=== PATIENT | female | born 1990 | race Caucasian/White ===

== ENCOUNTER 2019-08-11 14:35 | Emergency (ER) | payer OTHER ==
[~2019-08-11] VITALS: Ht 160 cm; Wt 72.2 kg
[2019-08-11 14:40] VITALS: BP 173/80
--- NOTE | 2019-08-11 15:27 | RAD ---
Examination: 3 views of the right hand HISTORY: History of dog bite COMPARISON: None available. FINDINGS: The alignment of the metacarpophalangeal joints, interphalangeal joints grossly appears unremarkable. There is no acute fracture or dislocation identified. Impression: No acute osseous findings. Electronically signed by: Yoshi Desouza MD (08/11/2019 3:24 PM) [id number]
[2019-08-11] MEDS: NEOMY/BACITR/POLYMYXIN OINT PACKET. TP ONE (15:43)
[2019-08-11] MEDS ORDERED: AMOX1TAB61 PO (16:10)
[2019-08-11] MEDS ORDERED: HYDR-2761 PO (16:10)
--- NOTE | 2019-08-11 16:10 | PHYS DOC ---
Past Medical History Past Medical History: No Pertinent History Past Surgical History: Tonsillectomy, Other Additional Past Surgical Histo: wisdom teeth extraction Smoking Status: Never Smoker Alcohol Use: Occasionally Adult General Chief Complaint Chief Complaint: ANIMAL BITE HPI HPI Patient is a 29 year old female who presents to the emergency department with complaints of right hand pain and puncture wounds after getting her hand bit while trying to break up an altercation between her dog and another dog. Patient states that she has had a tetanus shot in less than 5 years. She reports pain proximal to the third digit, she denies any numbness, tingling, or decreased range of motion. Patient states that prior to coming to the emergency room the wounds were washed out with soap and water by the patient's roommate. She currently rates her pain a 7 out of 10 on the pain scale, she denies taking any medication for relief of the pain prior to arrival. Patient denies any wrist or arm pain. Review of Systems Review of Systems Complete ROS is negative unless otherwise noted in HPI. Allergies Allergies Allergies Coded Allergies Type Severity Reaction Last Updated Verified No Known Drug Allergies 08/11/19 No Physical Exam Physical Exam See Above Constitutional: Well developed, well nourished, no acute distress, non-toxic appearance. [] HENT: Normocephalic, atraumatic, bilateral external ears normal, nose normal. [] Eyes: PERRLA, EOMI, conjunctiva normal, no discharge. [] Neck: Normal range of motion, no stridor. [] Cardiovascular:Heart rate regular rhythm Lungs & Thorax: Respirations even and unlabored, no retractions, no respiratory distress Skin: Warm, dry, no erythema, no rash; superficial abrasions noted to the volar surface of the right hand just proximal to the 2nd and 3rd knuckles, and between the DIP and the PIP of the 4th and 5rth digits, there is a less than 0.5 cm laceration/puncture wound noted to the palmar surface of the right hand proximal to the third digit, [] Extremities: R hand: TTP to the proximal 3rd metacarpal, no creptius, no obvious deformity, localized edema with hematoma noted, PMS intact, no cyanosis, no clubbing Neurologic: Alert and oriented X 3, no focal deficits noted. [] Psychologic: Affect normal, judgement normal, mood normal. [] Current Patient Data Vital Signs Vital Signs Date Time Temp Pulse Resp B/P (MAP) Pulse Ox O2 Delivery O2 Flow Rate FiO2 08/11/19 14:40 98.0 82 16 173/80 (111) 97 Room Air 98.0 EKG EKG [] Radiology/Procedures Radiology/Procedures PROCEDURE: HAND RIGHT 3V Examination: 3 views of the right hand HISTORY: History of dog bite COMPARISON: None available. FINDINGS: The alignment of the metacarpophalangeal joints, interphalangeal joints grossly appears unremarkable. There is no acute fracture or dislocation identified. Impression: No acute osseous findings.[] This x-ray was also read by Dr. Del Angel and Dr. Huston that both report concern of a non-displaced fracture over the proximal 3rd metacarpal. Course & Med Decision Making Course & Med Decision Making Pertinent Labs and Imaging studies reviewed. (See chart for details) 1521- Spoke with Dr. Huston and requested that he review patient's x-ray. Most likely a non-displaced fracture of the proximal third metacarpal, he recommends that the patient is placed in a Velcro wrist splint. Patient may return to work with the splint in place and follow-up with him next week. Will prescribe patient Augmentin for treatment of the animal bite and hydrocodone as needed for pain. The patient's tetanus is up-to-date. [] Dragon Disclaimer Dragon Disclaimer This electronic medical record was generated, in whole or in part, using a voice recognition dictation system. Departure Departure Impression: Primary Impression: Closed fracture of metacarpal of right hand Additional Impression: Dog bite of multiple sites of right hand and fingers Disposition: 01 HOME, SELF-CARE Condition: STABLE Referrals: KADY HUSTON MD Patient Instructions: Animal Bite, [id number], Hand Fracture, Metacarpals, [id number] Additional Instructions: Wear the black wrap and splint that were provided to you in the ER, you may continue to work as long as the splint is in place. Fill the prescription(s) and use as directed. You may take tylenol or ibuprofen as needed for pain, take the hydrocodone as needed for severe pain, limit Tylenol to 4000 mg a day, each tablet of hydrocodone has 325 mg of Tylenol in it. Keep the affected area clean and dry, wash with soap and water twice daily and apply antibiotic ointment and a clean bandage. Follow up with Dr. Huston next week, call to make an appointment today. Return to the ER if you develop a fever, increased redness/warmth/drainage, or redness that starts spreading up the affected extremity. Scripts Hydrocodone Bit/Acetaminophen (HYDROCODONE-APAP 5-325 ) 1 Tab Tablet 1 TAB PO PRN Q6HRS PRN for PAIN for 3 Days, #10 TAB 0 Refills Prov: BATSHEVA CHRISTIANSON APRN 08/11/19 Amoxicillin/Potassium Clav (AUGMENTIN 875-125 TABLET) 1 Each Tablet 1 TAB PO BID for 7 Days, #14 TAB 0 Refills Prov: BATSHEVA CHRISTIANSON APRN 08/11/19 Splinting Splinting : Location: [facility] wrist/hand Pre-Made Type: velcro (wrist splint and black bandage) Splint: wrist Pre-Proc Neuro Vasc Exam: normal Post-Proc Neuro Vasc Exam: normal, unchanged from pre-exam Problem Qualifiers Primary Impression: Closed fracture of metacarpal of right hand Encounter type: initial encounter Metacarpal bone: third Metacarpal location: unspecified portion of metacarpal Fracture alignment: nondisplaced Qualified Codes: S62.302A - Unspecified fracture of third me tacarpal bone, right hand, initial encounter for closed fracture Additional Impression: Dog bite of multiple sites of right hand and fingers Encounter type: initial encounter Qualified Codes: S61.451A - Open bite of right hand, initial encounter; S61.259A - Open bite of unspecified finger without damage to nail, initial encounter; W54.0XXA - Bitten by dog, initial encounter BATSHEVA CHRISTIANSON REFUELER Aug 11, 2019 16:10
== END 2019-08-11 16:12 | disposition home or self-care (01) ==
LOC: ER 14:35
DX: S62.302A Unspecified fracture of third metacarpal bone, right hand, initial encounter for closed fracture (principal); S61.252A Open bite of right middle finger without damage to nail, initial encounter; Z90.89 Acquired absence of other organs; Z98.890 Other specified postprocedural states; W54.0XXA Bitten by dog, initial encounter; Y93.89 Activity, other specified; Y92.89 Other specified places as the place of occurrence of the external cause; Y99.8 Other external cause status
CPT/HCPCS: 29125; 73130; 99283

== ENCOUNTER → 2019-12-18 | Outpatient (CLI) | payer OTHER ==
[~2019-12-18] MED LIST: AMOX1TAB61 PO; HYDR-2761 PO
== END | disposition home or self-care (01) ==
LOC: LAB 12:09
PROVIDERS: ATTEND Internal Medicine Pulmonary Disease
DX: Z11.59 Encounter for screening for other viral diseases (principal)
CPT/HCPCS: U0003-CS

== ENCOUNTER → 2021-09-22 | Outpatient (CLI) | payer OTHER | LOC: LAB 18:34 | PROVIDERS: ATTEND Internal Medicine Pulmonary Disease | DX: U07.1 COVID-19 (principal) | CPT/HCPCS: U0003 ==